=== PATIENT | male | born 1995 | race Caucasian/White ===

== ENCOUNTER 2025-05-12 13:38 | Emergency (ER) | payer OTHER, SELFPAY ==
[~2025-05-12] VITALS: Ht 177.8 cm; Wt 101.7 kg
[~2025-05-12 13:38] MED LIST: LISI40TA10 PO
[2025-05-12 14:15] VITALS: BP 157/84; TEMP 97
[2025-05-12 14:23] VITALS: O2SAT 98
== END 2025-05-12 14:39 | disposition home or self-care (01) ==
LOC: M ED 13:38
DX: S13.4XXA Sprain of ligaments of cervical spine, initial encounter (principal); Y92.9 Unspecified place or not applicable; Y93.9 Activity, unspecified; Y99.9 Unspecified external cause status; V49.40XA Driver injured in collision with unspecified motor vehicles in traffic accident, initial encounter; I10 Essential (primary) hypertension; Z79.899 Other long term (current) drug therapy

== ENCOUNTER 2025-06-13 09:35 | Emergency (ER) | payer OTHER ==
[~2025-06-13] VITALS: Ht 177.8 cm; Wt 100.0 kg
[2025-06-13] MEDS ORDERED: META-10 (09:50)
[2025-06-13] MEDS ORDERED: OXYC1TAB23 (09:50)
[2025-06-13 10:33] LABS: BASO # 0.0 10^3/uL (0.0-0.2); BASO % 0.2 % (0.0-1.0); EOS # 0.2 10^3/uL (0.0-0.5); EOS % 1.6 % (0.0-3.0); LYMPH # 2.0 10^3/uL (1.5-5.0); LYMPH % 15.9 % (24.0-44.0); MONO # 0.7 10^3/uL (0.0-0.8); MONO % 5.6 % (2.0-8.0); NEUTROPHILS # 9.8 10^3/uL (1.5-8.5); NEUTROPHILS % 76.3 % (36.0-66.0); PLATELET COUNT, AUTOMATED 392 10^3/uL (150-450)
[2025-06-13 10:53] VITALS: BP 182/72
[2025-06-13] MEDS: PERCOCET 5MG/325MG TAB PO ONE (10:53)
[2025-06-13 11:02] LABS: ALT/SGPT 40.0 U/L (7.0-40); AST/SGOT 46.0 U/L (<34); CALCIUM LEVEL 9.6 MG/DL (8.5-10.1); CARBON DIOXIDE LEVEL 28.0 MMOL/L (20-31); CHLORIDE LEVEL 99.0 MMOL/L (98-107); CREATININE FOR GFR 1.2 MG/DL (0.70-1.30); GLOMERULAR FILTRATION RATE 84.5 (>60); POTASSIUM SERUM 4.5 MMOL/L (3.5-5.1); SODIUM LEVEL 138.0 MMOL/L (136-145)
[2025-06-13] MEDS: MORPHINE 4 MG/ML 1 ML VIAL IV ONE (12:23)
[2025-06-13 15:00] VITALS: BP 147/68
[2025-06-13 15:05] VITALS: TEMP 97.2; O2SAT 99
== END 2025-06-13 15:13 | disposition short-term general hospital (02) ==
LOC: M ED 09:35
DX: G89.18 Other acute postprocedural pain (principal); M79.672 Pain in left foot; I10 Essential (primary) hypertension; Z79.899 Other long term (current) drug therapy